=== PATIENT | male | born 1965 | race Caucasian/White ===

== ENCOUNTER 2018-06-12 05:52 | Day surgery (SDC) | payer BC ==
[2018-06-12] MEDS ORDERED: CEFAZOLIN 2 GM/50 ML (PMX) 50 ML IVPB (06:00)
[2018-06-12] MEDS ORDERED: SOD CHLORIDE 0.9% 1,000 ML IV (06:00)
[2018-06-12] MEDS ORDERED: SEVOFLURANE 15 MIN (07:00)
[2018-06-12] MEDS ORDERED: hydrALAzine 20 MG INJ IV (08:00)
[2018-06-12] MEDS ORDERED: LABETALOL HCL 20MG INJ IV (08:00)
[2018-06-12] MEDS ORDERED: OXYCODONE/ACETAMINOPHEN (5/325) TAB PO (08:00)
[2018-06-12] MEDS ORDERED: DIPHENHYDRAMINE 50 MG INJ IV (08:00)
[2018-06-12] MEDS ORDERED: PROCHLORPERAZINE 10 MG INJ IV (08:00)
[2018-06-12] MEDS ORDERED: EPHEDrine SULFATE 50 MG/5 ML SYG IV (08:00)
[2018-06-12] MEDS ORDERED: HYDROmorphONE 1 MG/5 ML IV SYRINGE IV ×2 (08:00)
[2018-06-12] MEDS ORDERED: MEPERIDINE 25 MG INJ IV (08:00)
[2018-06-12] MEDS ORDERED: FENTAnyl 50 MCG/ML VIAL IV ×3 (08:00)
[2018-06-12] MEDS ORDERED: FENTAnyl 50 MCG/ML VIAL (08:09)
[2018-06-12] MEDS ORDERED: ROPIVACAINE 0.5 % 30 ML VIAL (08:09)
[2018-06-12] MEDS ORDERED: MIDAZOLAM 1 MG/ML 2 ML INJ (08:09)
[2018-06-12] MEDS ORDERED: DEXAMETHASONE 4 MG/ML 5 ML INJ (08:47)
[2018-06-12] MEDS ORDERED: PROPOFOL 20 ML (08:47)
[2018-06-12] MEDS ORDERED: SUCCINYLCHOLINE CHLORIDE 100 MG/5 ML SYG IV (08:47)
[2018-06-12] MEDS ORDERED: LIDOCAINE 2% (SDV) 5 ML INJ (08:47)
[2018-06-12] MEDS ORDERED: ONDANSETRON 4 MG INJ (08:47)
[2018-06-12] MEDS ORDERED: ROCURONIUM 50 MG INJ (08:47)
[2018-06-12] MEDS ORDERED: FAMOTIDINE 20 MG INJ (08:47)
[2018-06-12] MEDS ORDERED: CEFAZOLIN 1 GM INJ (08:52)
[2018-06-12] MEDS ORDERED: HYDROmorphONE 2 MG/ML SYG (09:00)
[2018-06-12] MEDS: HYDROmorphONE 1 MG/5 ML IV SYRINGE IV ×2 (09:26→09:34)
[2018-06-12] MEDS: ONDANSETRON 4 MG INJ IV (09:36)
[2018-06-12] MEDS: HYDROCODONE/APAP (5/325) TAB PO (10:02)
== END 2018-06-12 10:48 | disposition home or self-care (01) ==
LOC: SDS 05:52
DX: K80.10 Calculus of gallbladder with chronic cholecystitis without obstruction (principal)
CPT/HCPCS: 47562; 88304